=== PATIENT | male | born 1945 | race Caucasian/White ===

== ENCOUNTER 2019-01-19 01:11 | Inpatient (IN) ==
[2019-01-20] MEDS ORDERED: Bisacodyl 10 MG Supp RECTAL PRN (04:01)
[2019-01-20] MEDS ORDERED: Acetaminophen 325 MG Tablet PO PRN (04:01)
[2019-01-20] MEDS ORDERED: Dextrose 50% in Water 50 ML Vial IV.PUSH PRN (04:32)
--- NOTE | 2019-01-20 04:43 | P.HPIM ---
History of Present Illness Primary Care Physician: UNKNOWN Mr. Flores is a very pleasant 73-year-old male with a history of nephrolithiasis status post stent placement many years ago, coronary artery disease status post stent placement x2, and type 2 diabetes mellitus who is transferred from [facility] in [place] for treatment of obstructive uropathy. The patient has been having severe sharp stabbing pain in his left flank for 2 days that has progressively worsened. He was seen at [facility] in the emergency room where an abdomen/pelvis CT showed a 6 mm calculus in the left ureter at level of the border of L4 vertebrae causing mild hydronephrosis and hydroureter. He also has elevated bun at 41 and creatinine 2.61 with estimated GFR 23.31 and creatinine clearance 28.3 but denies any history of chronic kidney disease. At the time of my visit, he is pain-free. The patient states that his pain was relieved with IV morphine given in the emergency room. His WBC is 14.9 but his urinalysis is negative for findings associated with urinary tract infection. He denies any recent fevers, chills, cough, shortness of breath, chest pain, nausea, vomiting, or diarrhea. Leukocytosis may be reactive. Inpatient Certification Inpatient Certification: I certify that the inpatient services were ordered in accordance with Medicare regulations governing the order. This includes certification that hospital inpatient services are reasonable and necessary and in the case of services not specified as inpatient-only under 42 CFR 419.22(n), that they are appropriately provided as inpatient services in accordance to with the 2-midnight benchmark under 43 CFR 412.3(e) Estimated Total Length of Stay (Days): 2 Plans for Post Hospital Care: Not yet determined Review of Systems Review of Systems: all other systems reviewed are negative [facility] History History Provided By: Patient Medical History Medical History Coronary artery disease (Acute) Nephrolithiasis (Acute) Type 2 diabetes mellitus (Acute) Surgical History Surgical History History of coronary artery stent placement (Acute) History of ureter stent (Acute) Family History Family History Mother Coronary artery disease Diabetes mellitus Father Diabetes mellitus Coronary artery disease Social History Social History Substance History: No History of Abuse Smoking Status: Former smoker Tobacco Type: Cigarettes Smoking End Date: 30 years ago How Often Do You Have a Drink Containing Alcohol: Never Medications and Allergies Allergies Allergy/AdvReac Type Severity Reaction Status Date / Time No Known Allergies Allergy Verified 01/20/19 04:01 Active Medications: Active Medications Acetaminophen (Tylenol) 650 mg PO Q4H PRN PRN Reason: Temp > 100.4 Al Hydroxide/Mg Hydroxide (Milk Of Magnesia Liq) 30 ml PO Q12H PRN PRN Reason: Mild Constipation Bisacodyl (Dulcolax Supp) 10 mg RECTAL DAILY PRN PRN Reason: SEVERE CONSITIPATION Dextrose (D50w Vial) 50 ml IV.PUSH UNSCH PRN PRN Reason: PER HYPOGLYCEMIA PROTOCOL Glucagon (Glucagon Inj) 1 mg OTHER PRN PRN PRN Reason: for Hypoglycemia Protocol Insulin Aspart (Novolog Insulin Correctional Sugar Inj) 0 unit SQ ACHS AND 3AM NATHAN; Protocol Lactulose (Lactulose Liq) 30 ml PO DAILY PRN PRN Reason: SEVERE CONSITIPATION Morphine Sulfate (Morphine Inj) 2 mg IV.PUSH Q3H PRN PRN Reason: pain > 3 Ondansetron HCl (Zofran Inj) 4 mg IV.PUSH Q6H PRN PRN Reason: NAUSEA OR VOMITING Senna/Docusate Sodium (Nida-Colace) 1 tab PO BID NATHAN Sennosides (Senokot) 17.2 mg PO Q12H PRN PRN Reason: Moderate Constipation Sodium Chloride (Ns Flush) 2 ml IV.FLUSH BID NATHAN Sodium Chloride (Ns Flush) 2 ml IV.FLUSH PRN PRN PRN Reason: FLUSH AFTER USING IV ACCESS Physical Exam Vital signs: Intake & Output 01/19/19 01/19/19 01/20/19 06:59 18:59 06:59 Weight 93.44 kg Other: Weight On Admission 93.44 kg Results Labs CBC & Chem 7: 01/20/19 09:18 01/20/19 09:18 Caprini VTE Risk Assessment Caprini VTE Risk Assessment: Moderate/High Risk (score >= 2) Caprini Risk Assessment Model: Point Value = 1 Point Value = 2 Point Value = 3 Point Value = 5 Age 41-60 Minor surgery BMI > 25 kg/m2 Swollen legs Varicose veins or History of unexplained or recurrent spontaneous Oral contraceptives or hormone replacement Sepsis (< 1 month) Serious lung disease, including pneumonia (< 1 month) Abnormal pulmonary function Acute myocardial infarction Congestive heart failure (< 1 month) History of inflammatory bowel disease Medical patient at bed rest Age 61-74 Arthroscopic surgery Major open surgery (> 45 min) Laparoscopic surgery (> 45 min) Malignancy Confined to bed (> 72 hours) Immobilizing plaster cast Central venous access Age >= 75 History of VTE Family history of VTE Factor V Leiden Prothrombin [id number] Lupus anticoagulant Anticardiolipin antibodies Elevated serum homocysteine Heparin-induced thrombocytopenia Other congenital or acquired thrombophilia Stroke (< 1 month) Elective arthroplasty Hip, pelvis, or leg fracture Acute spinal cord injury (< 1 month) Prophylaxis Regimen: Total Risk Factor Score Risk Level Prophylaxis Regimen 0-1 Low Early ambulation 2 Moderate Order ONE of the following: *Sequential Compression Device (SCD) *Heparin 5000 units SQ BID 3-4 Higher Order ONE of the following medications: *Heparin 5000 units SQ TID *Enoxaparin/Lovenox 40 mg SQ daily (WT < 150 kg, CrCl > 30 mL/min) *Enoxaparin/Lovenox 30 mg SQ daily (WT < 150 kg, CrCl > 10-29 mL/min) *Enoxaparin/Lovenox 30 mg SQ BID (WT < 150 kg, CrCl > 30 mL/min) AND/OR *Sequential Compression Device (SCD) 5 or more Highest Order ONE of the following medications: *Heparin 5000 units SQ TID (Preferred with Epidurals) *Enoxaparin/Lovenox 40 mg SQ daily (WT < 150 kg, CrCl > 30 mL/min) *Enoxaparin/Lovenox 30 mg SQ daily (WT < 150 kg, CrCl > 10-29 mL/min) *Enoxaparin/Lovenox 30 mg SQ BID (WT < 150 kg, CrCl > 30 mL/min) AND *Sequential Compression Device (SCD) Assessment and Plan Plan Mr. Flores is a very pleasant 73-year-old male with a history of nephrolithiasis status post stent placement many years ago, coronary artery disease status post stent placement x2, and type 2 diabetes mellitus who is transferred from [facility] in [place] for treatment of obstructive uropathy. Obstructive uropathy -Consult to urology -Dr. Dawn agreed to see patient for probable stent placement this morning -N.p.o. except medications -IV fluid hydration with normal saline at 84 cc/h -Analgesia with morphine IV as needed -Monitor I and Os Acute kidney injury suspected - likely secondary to obstructive uropathy with probable chronic kidney disease given patient's medical history of diabetes mellitus and coronary artery disease -BUN 41, creatinine 2.61, estimated GFR 23.31, creatinine clearance 28.3 -no prior labs for comparison -patient denies history of chronic kidney disease -IV fluid hydration as above -Avoid nephrotoxins -Repeat BMP and monitor renal function Leukocytosis -WBC 14.9 -UA negative for findings associated with UTI -suspect reactive leukocytosis -We will recheck CBC this a.m. and follow results; monitor for fever or other signs of infection Type 2 Diabetes Mellitus -Accu-Cheks before meals and at bedtime with low-dose NovoLog sliding scale coverage -Hypoglycemia protocol -Monitor trends and blood glucose readings and adjust treatments as indicated -Restart home medications when patient's brings in medication list - avoid metformin due to renal dysfunction Coronary artery disease status post stent placement -We will continue cardiac medications as soon as patient's arrives with medication list -Continuous cardiac telemetry to monitor for arrhythmias DVT prophylaxis -SCDs -chemoprophylaxis per urology recommendations Attending Attestation The exam, history, and the medical decision-making described in the above note were completed with the assistance of the mid-level provider. I reviewed and agree with the findings presented. I attest that I had a [id number] encounter with the patient on the same day, and personally performed and documented my assessment and findings in the medical record. Patient with Obstructive uropathy. Consult to urology -Dr. Dawn plan for stent placement by Dr Dawn
[2019-01-20] MEDS: Sod Chloride 0.9% Inj 1,000 ML IV.CONT SCH ×2 (06:31→22:48)
[2019-01-20] MEDS: Senna/Docusate Sodium 8.6/50 MG Tablet PO SCH ×2 (08:05→22:40)
[2019-01-20] MEDS: Morphine Sulfate Inj 2 MG/ML Vial IV.PUSH PRN ×3 (08:05→15:05)
[2019-01-20 09:50] LABS: Baso % (Auto) 0.1 % (0.0-2.0); Eos # (Auto) 0.1 th/mm3 (0.0-0.4); Eos % (Auto) 0.5 % (0.0-4.0); Hematocrit 39.8 % (39.0-51.0); Hemoglobin 13.6 gm/dL (13.0-17.0); Lymph # (Auto) 1.1 th/mm3 (1.0-4.8); Lymph % (Auto) 10.2 % (9.0-44.0); Mean Corpuscular HGB Conc 34.1 % (32.0-36.0); Mean Corpuscular Hemoglobin 31.4 pg (27.0-34.0); Mean Corpuscular Volume 92.1 fL (80.0-100.0); Mean Platelet Volume 7.1 fL (7.0-11.0); Mono # (Auto) 1.1 th/mm3 (0.0-0.9); Mono % (Auto) 10.4 % (0.0-8.0); Neut # (Auto) 8.6 th/mm3 (1.8-7.7); Neut % (Auto) 78.8 % (16.0-70.0); Platelet Count 183 th/mm3 (150-450); Red Blood Count 4.32 mil/mm3 (4.50-5.90); Red Cell Distribution Width 12.6 % (11.6-17.2); White Blood Count 10.9 th/mm3 (4.0-11.0)
[2019-01-20 10:11] LABS: Calcium 8.5 mg/dL (8.5-10.1); Carbon Dioxide 21.5 meq/L (21.0-32.0); Potassium 4.4 meq/L (3.5-5.1)
--- NOTE | 2019-01-20 10:58 | P.CONURO ---
History of Present Illness Service: Med Consult date: 01/20/19 Requesting Physician: Yesenia Maloney Reason for Consult: obstructing ureteral stone, renal colic, hydronephrosis, CKD Primary Care Provider: UNKNOWN Chief Complaint: Pain, left side History of Present Illness: 73 Y/O white male with 3 day hx of left flank and LLQ abdominal pain. He was seen in the [facility] ED last night where a CT scan showed a 6 mm stone obstructing the proximal LEFT ureter with some hydronephrosis. He was transferred to [place] early this AM. He has a hx of urinary stones in the past. Other medical problems: DM, CAD with stents, CKD with stent in left renal artery , Parkinson's. He agrees to have a urinary stent placed into the LEFT ureter and kidney in the OR today under general anesthesia. He fully understands the reason and the procedure. F/U with his Urologist in [place] after discharge. [facility] - History History Provided By: Patient - Medical History Medical History: Medical History (Last Updated 01/20/19 @ 04:56 by ALLEN León) Coronary artery disease Nephrolithiasis Type 2 diabetes mellitus - Surgical History Surgical History: Surgical History (Last Updated 01/20/19 @ 04:57 by ALLEN León) History of coronary artery stent placement History of ureter stent - Family History Family History: Family History Mother Coronary artery disease Diabetes mellitus Father Diabetes mellitus Coronary artery disease - Social History I have reviewed the patient's Social History: Yes - Tobacco History Smoking Status: Former smoker Tobacco Type: Cigarettes Smoking End Date: 30 years ago - Alcohol History How Often Do You Have a Drink Containing Alcohol: Never - Substance Use History Substance History: No History of Abuse Medications and Allergies Active Medications: Active Medications Acetaminophen (Tylenol) 650 mg PO Q4H PRN PRN Reason: Temp > 100.4 Al Hydroxide/Mg Hydroxide (Milk Of Magnesia Liq) 30 ml PO Q12H PRN PRN Reason: Mild Constipation Bisacodyl (Dulcolax Supp) 10 mg RECTAL DAILY PRN PRN Reason: SEVERE CONSITIPATION Dextrose (D50w Vial) 50 ml IV.PUSH UNSCH PRN PRN Reason: PER HYPOGLYCEMIA PROTOCOL Glucagon (Glucagon Inj) 1 mg OTHER PRN PRN PRN Reason: for Hypoglycemia Protocol Sodium Chloride (Ns Inj) 1,000 mls @ 84 mls/hr IV.CONT .[id number] NATHAN Last Admin: 01/20/19 06:31 Dose: 84 mls/hr Insulin Aspart (Novolog Insulin Correctional Sugar Inj) 0 unit SQ ACHS AND 3AM NATHAN; Protocol Lactulose (Lactulose Liq) 30 ml PO DAILY PRN PRN Reason: SEVERE CONSITIPATION Morphine Sulfate (Morphine Inj) 2 mg IV.PUSH Q3H PRN PRN Reason: pain > 3 Last Admin: 01/20/19 08:05 Dose: 2 mg Ondansetron HCl (Zofran Inj) 4 mg IV.PUSH Q6H PRN PRN Reason: NAUSEA OR VOMITING Senna/Docusate Sodium (Nida-Colace) 1 tab PO BID [facility] Last Admin: 01/20/19 08:05 Dose: 1 tab Sennosides (Senokot) 17.2 mg PO Q12H PRN PRN Reason: Moderate Constipation Sodium Chloride (Ns Flush) 2 ml IV.FLUSH BID NATHAN Sodium Chloride (Ns Flush) 2 ml IV.FLUSH PRN PRN PRN Reason: FLUSH AFTER USING IV ACCESS Allergies Allergy/AdvReac Type Severity Reaction Status Date / Time No Known Allergies Allergy Verified 01/20/19 04:01 Physical Exam Vital Signs - 24 hr 01/20/19 06:46 01/20/19 08:00 Temperature 97.9 F Pulse Rate 53 L 54 L Respiratory Rate 18 16 Blood Pressure 118/67 112/68 Pulse Oximetry 98 97 Physical Exam: GENERAL: This is a well-nourished, well-developed patient, in no apparent distress. SKIN: No rashes, ecchymoses or lesions. Cool and dry. HEAD: Atraumatic. Normocephalic. No temporal or scalp tenderness. EYES: Pupils equal round and reactive. Extraocular motions intact. No scleral icterus. No injection or drainage. ENT: Nose without bleeding, purulent drainage or septal hematoma. Throat without erythema, tonsillar hypertrophy or exudate. Uvula midline. Airway patent. NECK: Trachea midline. No JVD or lymphadenopathy. Supple, nontender, no meningeal signs. CARDIOVASCULAR: RESPIRATORY: GASTROINTESTINAL: Abdomen soft, non-tender, nondistended. No hepato-splenomegaly , or palpable masses. No guarding. GENITOURINARY: FLANKS: Left tenderness to fist percussion. EXT. GENITALIA: Penis WNL, Testes WNL. PROSTATE: Will examine in the OR. MUSCULOSKELETAL: Extremities without clubbing, cyanosis, or edema. No joint tenderness, effusion, or edema noted. NEUROLOGICAL: Awake and alert. Cranial nerves II through XII intact. Motor and sensory grossly within normal limits. Normal speech. Lab results reviewed: Yes Laboratory Results - last 24 hr 01/20/19 01/20/19 01/20/19 07:59 09:18 09:18 WBC 10.9 RBC 4.32 L Hgb 13.6 Hct 39.8 MCV 92.1 MCH 31.4 MCHC 34.1 RDW 12.6 Plt Count 183 MPV 7.1 Neut % (Auto) 78.8 H Lymph % (Auto) 10.2 [place] % (Auto) 10.4 H Eos % (Auto) 0.5 Baso % (Auto) 0.1 Neut # (Auto) 8.6 H Lymph # (Auto) 1.1 [place] # (Auto) 1.1 H Eos # (Auto) 0.1 Baso # (Auto) 0.0 WBC Differential . Differential Comment Auto diff final Sodium 138 Potassium 4.4 Chloride 107 Carbon Dioxide 21.5 Anion Gap 10 BUN 43 H Creatinine 2.49 H Estimated GFR 26 L POC Glucose 108 Random Glucose 93 Calcium 8.5 Result Diagrams: 01/20/19 09:18 01/20/19 09:18 Personally reviewed images: No Imaging: CT scan done at [place], [place]. Assessment and Plan - Assessment (1) Calculus of proximal left ureter Code(s): N20.1 - Calculus of ureter Status: Acute Onset Date: ~01/17/19 (2) Renal colic on left side Code(s): N23 - Unspecified renal colic Status: Acute Onset Date: ~01/17/19 (3) Hydronephrosis of left kidney Code(s): N13.30 - Unspecified hydronephrosis Status: Acute Onset Date: ~ (4) CKD (chronic kidney disease) stage 4, GFR 15-29 ml/min Code(s): N18.4 - Chronic kidney disease, stage 4 (severe) Status: Chronic - Plan To OR today to place urinary stent into the LEFT ureter and kidney. Discharge tomorrow if medically stable. F/U with his Urologist in [place]. Discussed Condition With: Patient, , nurse, Dr. Maloney [facility] ED physician. Discharge Planning: discharge tomorrow if medically stable. F/U with his Urologist in [place].
--- NOTE | 2019-01-20 13:25 | ECG ---
Date Performed: 01/20/2019 Time Performed: 11:15:09 PTAGE: 73 years EKG: SINUS BRADYCARDIA BORDERLINE ECG NO PREVIOUS TRACING DOCTOR: Chidi Reich Interpretating Date/Time 01/20/2019 13:23:24
[2019-01-20 14:29] LABS: Prothrombin Time 10.5 sec (9.8-11.6)
[2019-01-20] MEDS: Insulin NovoLOG Aspart Correctional Sugar Inj SQ SCH ×3 (14:45→20:55)
[2019-01-20] MEDS ORDERED: Lidocaine PF 1% Inj 5 ML Syringe OTHER ONE (19:26)
[2019-01-20] MEDS ORDERED: fentaNYL Citrate Inj 100 MCG/2 ML Ampul ONE (20:42)
--- NOTE | 2019-01-20 20:58 | P.OP ---
- Preoperative Diagnosis (1) Renal colic on left side (2) Calculus of proximal left ureter (3) Hydronephrosis of left kidney (4) CKD (chronic kidney disease) stage 4, GFR 15-29 ml/min - Postoperative Diagnosis (1) Renal colic on left side (2) Calculus of proximal left ureter (3) Hydronephrosis of left kidney (4) CKD (chronic kidney disease) stage 4, GFR 15-29 ml/min Date of procedure: 01/20/19 Procedure: Cystoscopy. Left retrograde ureterogram. Placement of 6 Fr. 26 CM urinary stent into LEFT ureter and kidney. Anesthesia: other (Gen LMA) Surgeon: Samm Keating MD Estimated blood loss (mL): 2 Pathology: none sent Operation and Findings: The patient was taken into the urology suite, placed supine on the cystoscopy table, given a general anesthetic with LMA airway. Sequential compression devices were in place and connected to the pump. 1 g of IV Ancef was given. The patient was then positioned on the operating table for the urological procedure with his legs in stirrups. A Betadine prep was then done to include the external genitalia, perineum, medial thighs, and suprapubic area up to the umbilicus. He was then draped sterilely. 2 timeouts were done. First patient identification, correct left side, correct procedure, correct surgeon, medication and allergies etc. Then a fire safety timeout was done. A 20 Latvian cystoscope using a 30 degree lens was then passed in a retrograde fashion up the urethra through the prostate into the bladder openings. Without difficulty. The bladder interior was then visualized completely with a 70 degree lens. Cystoscopic findings include a large caliber bulbar urethral stricture that is nonobstructing, prostatic calcifications compatible with chronic prostatitis, nonobstructing prostate lateral lobes, and anterior angulated prostate floor up to the bladder neck which is vascular. The bladder interior shows a moderate degree of bladder trabeculation with a small diverticulum slightly above the left ureteral orifice and trigone. There is some increased vascularity near the bladder neck and trigone. No bladder cancers or lesions were seen inside the bladder. The trigone appeared to be unremarkable and both ureteral orifices were visible and both appeared to be slightly spatulated with the bladder distended. Otherwise the had slit openings. Fluoroscopy showed the stone in the proximal left ureter opposite L4. A 5 Latvian open-ended ureteral catheter was passed just inside the left ureteral orifice. Through the catheter Conray was injected until it reached the stone. No attempt was made to force Conray above the stone. Through the open-ended catheter a Sensor guidewire was passed beyond the stone and was seen to coil in the kidney on fluoroscopy. The open-ended catheter was then removed over the guidewire. Then over the guidewire a 6 Latvian, 26 cm length Microvasive urinary stent was passed into the kidney and seen to coil fluoroscopically. The lower end was positioned at the ureteral orifice at the correct black guerrero at the distal end of the stent. The pullout string was then removed. The guidewire was then removed. The lower end of the stent was then positioned to coil inside the bladder. Fluoroscopy was used to show that both proximal and distal coils were coiled correctly and in the proper location. The bladder was drained of irrigating fluid. The cystoscope was removed from the patient. The foreskin was then replaced over the glans penis. A rectal prostate exam was then done. No rectal masses were felt. The prostate appeared to be moderately enlarged smooth symmetrical and feels benign without any palpable nodules. The patient tolerated the procedure well without any surgical or anesthetic complications and he was found to be stable in the recovery room. Plan: Patient will be kept in the hospital overnight. He will be discharged tomorrow by the hospitalist if he is medically stable. Urology follow-up will be with his urologist in [place].
[2019-01-21] MEDS: Insulin NovoLOG Aspart Correctional Sugar Inj SQ SCH ×4 (08:00→21:15)
--- NOTE | 2019-01-21 09:44 | P.PNIM ---
Subjective Interval history: The patient is in bed appears tired however not in acute distress. Says he has dark urine and bloody. Some pain with urination. No fever or chills overnight. No nausea or vomiting able to eat. Physical Exam Vital signs: Vital Signs 01/20/19 11:27 01/20/19 15:45 01/20/19 20:00 Temperature 98 F Pulse Rate 51 L 54 L 55 L Respiratory Rate 16 18 Blood Pressure 111/62 114/62 Pulse Oximetry 95 95 01/20/19 20:35 01/20/19 20:45 01/20/19 21:00 Temperature 97.6 F 97.6 F Pulse Rate 59 L 61 59 L Respiratory Rate 12 15 12 Blood Pressure 140/67 146/65 H 126/74 Pulse Oximetry 91 L 96 93 L 01/21/19 00:00 01/21/19 04:00 Temperature 98.3 F Pulse Rate 53 L 58 L Respiratory Rate 16 16 Blood Pressure 118/68 130/71 Pulse Oximetry 97 98 Intake & Output 01/20/19 01/21/19 01/21/19 18:59 06:59 18:59 Intake Total 1000 / 1000 412 / 412 Output Total 400 / 400 902 / 902 Balance 600 / 600 -490 / -490 Intake: IV 1000 / 1000 NS Inj 1,000 ML @ 84 mls/hr IV. 1000 / 1000 CONT .[id number] [facility] Rx#:[id number] Oral 400 / 400 Anesthesia Amount 12 / Output: Urine 400 / 400 900 / 900 Estimated Blood Loss 2 / 2 Narrative: GENERAL: Pleasant 73-year-old male, well-nourished well-developed appears in not acute distress. CARDIOVASCULAR: Regular rate and rhythm. RESPIRATORY: No accessory muscle use. Clear to auscultation. Breath sounds equal bilaterally. GASTROINTESTINAL: Abdomen soft, non-tender, nondistended. Hepatic and splenic margins not palpable. MUSCULOSKELETAL: Extremities without clubbing, cyanosis, or edema. No obvious deformities. NEUROLOGICAL: Awake and alert. No obvious cranial nerve deficits. Motor grossly within normal limits. Normal speech. PSYCHIATRIC: Appropriate mood and affect; insight and judgment normal. Results Labs CBC & Chem 7: 01/20/19 09:18 01/21/19 10:42 Assessment and Plan (1) Calculus of proximal left ureter: Code(s): N20.1 - Calculus of ureter Status: Acute Onset Date: ~01/17/19 (2) Renal colic on left side: Code(s): N23 - Unspecified renal colic Status: Acute Onset Date: ~01/17/19 (3) Hydronephrosis of left kidney: Code(s): N13.30 - Unspecified hydronephrosis Status: Acute Onset Date: ~01/17/19 (4) CKD (chronic kidney disease) stage 4, GFR 15-29 ml/min: Code(s): N18.4 - Chronic kidney disease, stage 4 (severe) Status: Chronic Onset Date: Unknown Plan Mr. Flores is a very pleasant 73-year-old male with a history of nephrolithiasis status post stent placement many years ago, coronary artery disease status post stent placement x2, and type 2 diabetes mellitus who is transferred from [facility] in [place] for treatment of obstructive uropathy. Obstructive uropathy -Consult to urology -Dr. Dawn s/p stent placement on 01/20 -IV fluid hydration with normal saline at 84 cc/h -Analgesia with morphine IV as needed -Monitor I and Os Acute kidney injury suspected - likely secondary to obstructive uropathy with probable chronic kidney disease given patient's medical history of diabetes mellitus and coronary artery disease -BUN 41, creatinine 2.61, estimated GFR 23.31, creatinine clearance 28.3 -on admissionno prior labs for comparison -patient denies history of chronic kidney disease -IV fluid hydration as above, kidney function imprpving. -Avoid nephrotoxins -Repeat BMP and monitor renal function Leukocytosis -WBC 14.9 -UA negative for findings associated with UTI -suspect reactive leukocytosis -We will recheck CBC this a.m. and follow results; monitor for fever or other signs of infection Type 2 Diabetes Mellitus -Accu-Cheks before meals and at bedtime with low-dose NovoLog sliding scale coverage -Hypoglycemia protocol -Monitor trends and blood glucose readings and adjust treatments as indicated -Restart home medications when patient's brings in medication list - avoid metformin due to renal dysfunction Coronary artery disease status post stent placement -We will continue cardiac medications as soon as patient's arrives with medication list -Continuous cardiac telemetry to monitor for arrhythmias DVT prophylaxis -SCDs -chemoprophylaxis per urology recommendations Discharge plan: Discharge likely tomorrow if creatinine continues to improve
[2019-01-21] MEDS: Senna/Docusate Sodium 8.6/50 MG Tablet PO SCH ×2 (09:54→21:08)
[2019-01-21 11:57] LABS: Calcium 8.5 mg/dL (8.5-10.1); Carbon Dioxide 23.9 meq/L (21.0-32.0); Potassium 4.3 meq/L (3.5-5.1)
--- NOTE | 2019-01-21 15:09 | P.DS ---
DS: Providers Date of admission: 01/20/19 03:47 Primary care physician: UNKNOWN Consults: 01/20/19 04:43 Consult to Urology Routine Consulting Provider: Samm Keating Reason for Consultation: obstructive uropathy Notified:: Service Spoke with:: leonardo Date Notified:: 01/20/19 Time Notified:: 06:02 Ordering Provider: DORINA DS: Diagnosis Discharge Diagnosis (1) Calculus of proximal left ureter: Status: Acute (2) Renal colic on left side: Status: Acute (3) Hydronephrosis of left kidney: Status: Acute (4) CKD (chronic kidney disease) stage 4, GFR 15-29 ml/min: Status: Chronic DS: Summary Mr. Flores is a very pleasant 73-year-old male with a history of nephrolithiasis status post stent placement many years ago, coronary artery disease status post stent placement x2, and type 2 diabetes mellitus who is transferred from [facility] in [place] for treatment of obstructive uropathy. Obstructive uropathy -Consult to urology -Dr. Dawn s/p stent placement on 01/20 -IV fluid hydration with normal saline at 84 cc/h -Analgesia with morphine IV as needed -Monitor I and Os Acute kidney injury suspected - likely secondary to obstructive uropathy with probable chronic kidney disease given patient's medical history of diabetes mellitus and coronary artery disease -BUN 41, creatinine 2.61, estimated GFR 23.31, creatinine clearance 28.3 -on admission no prior labs for comparison -patient denies history of chronic kidney disease -IV fluid hydration as above, kidney function improving. CR at 1.33 at DC imprpved significantly. Encourage PO intake -Avoid nephrotoxins -Repeat BMP and monitor renal function Leukocytosis -WBC 14.9 -UA negative for findings associated with UTI -suspect reactive leukocytosis No signes of infection repeat wbc back to normal Type 2 Diabetes Mellitus -Accu-Cheks before meals and at bedtime with low-dose NovoLog sliding scale coverage -Hypoglycemia protocol -Monitor trends and blood glucose readings and adjust treatments as indicated -Restart home medications when patient's brings in medication list - avoid metformin due to renal dysfunction Coronary artery disease status post stent placement -We will continue cardiac medications as soon as patient's arrives with medication list -Continuous cardiac telemetry to monitor for arrhythmias DVT prophylaxis -SCDs -chemoprophylaxis per urology recommendations The patient improved significantly, DC home with home health. To follow up as OP with PCP and consultants. Time Spent with Patient Total time spent providing and/or coordinating discharge services: > 30 min Exam Narrative Exam Narrative: GENERAL: Pleasant 73-year-old male, well-nourished well- developed appears in not acute distress. CARDIOVASCULAR: Regular rate and rhythm. RESPIRATORY: No accessory muscle use. Clear to auscultation. Breath sounds equal bilaterally. GASTROINTESTINAL: Abdomen soft, non-tender, nondistended. Hepatic and splenic margins not palpable. MUSCULOSKELETAL: Extremities without clubbing, cyanosis, or edema. No obvious deformities. NEUROLOGICAL: Awake and alert. No obvious cranial nerve deficits. Motor grossly within normal limits. Normal speech. PSYCHIATRIC: Appropriate mood and affect; insight and judgment normal. Results Labs on day of discharge: Labs from last 24 hours 01/21/19 01/21/19 01/21/19 11:45 10:42 08:02 Sodium 139 Potassium 4.3 Chloride 108 H Carbon Dioxide 23.9 Anion Gap 7 BUN 36 H Creatinine 1.87 H Estimated GFR 36 L POC Glucose 135 H 117 H Random Glucose 134 H Calcium 8.5 01/21/19 01/20/19 01/20/19 04:21 20:54 17:14 Sodium Potassium Chloride Carbon Dioxide Anion Gap BUN Creatinine Estimated GFR POC Glucose 99 85 94 Random Glucose Calcium Discharge Plan Discharge Disposition Patient Disposition: 01 Discharge Home Discharge Order Discharge Orders: Discharge Order (Routine); Ordered 01/22/19 Ordered By: Rochelle Sadler Urology Clear for Discharge (Routine); Ordered 01/20/19 Ordered By: Samm Keating Discharge Details Anticipated Discharge Date: 01/22/19 Discharge Comment: DC if kidney function improves Physicians Team Primary Care Provider: ROSALIA, Attending Provider: Rochelle Sadler Other Providers: Samm Keating Rxs /Orders / Referrals /Forms Prescriptions: New hydrocodone-acetaminophen [Lyle] 5-325 mg tablet 1 tab PO Q4-6H PRN (Reason: Acute Pain Exception) Qty: 10 RF: 0 Referrals: UNKNOWN, [Primary Care Provider] - See Instructions ( Please call the physician's office to book the appointment to be seen within [follow up with your PCP in 2-3 days ]. Follow up with your urology Dr in [place] within 1 week) Discharge Instructions Patient Printed Instructions: Hydrocodone/Acetaminophen (By mouth), Kidney Stones (DC), Cystoscopy (DC) Additional Instructions: Your Health Problems: Goals to Promote Your Health: * To prevent worsening of your condition * To maintain your health at the optimal level Directions to Meet Your Goals: * Take your medications as prescribed * Follow your dietary instruction * Follow activity as directed * Keep your appointments as scheduled * Take your immunizations and boosters as scheduled * If your symptoms worsen call your PCP * If no PCP go to Urgent Care or Emergency Room Smoking is dangerous to your health. Avoid second hand smoke. You may reach the 24-hour crisis hotline for domestic abuse at . Post Discharge Care Plan Care Plan Goals: Your Health Problems: Goals to Promote Your Health: * To prevent worsening of your condition * To maintain your health at the optimal level Directions to Meet Your Goals: * Take your medications as prescribed * Follow your dietary instruction * Follow activity as directed * Keep your appointments as scheduled * Take your immunizations and boosters as scheduled * If your symptoms worsen call your PCP * If no PCP go to Urgent Care or Emergency Room Smoking is dangerous to your health. Avoid second hand smoke. You may reach the [place]-hour Tech[employer]line for domestic abuse at .
[2019-01-21] MEDS: Sod Chloride 0.9% Inj 1,000 ML IV.CONT SCH ×2 (21:13→21:15)
[2019-01-22] MEDS: Insulin NovoLOG Aspart Correctional Sugar Inj SQ SCH ×3 (03:12→11:44)
[2019-01-22] MEDS: Senna/Docusate Sodium 8.6/50 MG Tablet PO SCH (08:24)
[2019-01-22 09:30] LABS: Calcium 8.8 mg/dL (8.5-10.1); Carbon Dioxide 24.8 meq/L (21.0-32.0); Potassium 4.9 meq/L (3.5-5.1)
[2019-01-22] MEDS: Sod Chloride 0.9% Inj 1,000 ML IV.CONT SCH (14:28)
== END 2019-01-22 17:06 | disposition home or self-care (01) | DRG 661 ==
LOC: HCIN 01-20 03:47
PROVIDERS: ADMIT Hospitalist; ATTEND Hospitalist
DX: N18.4 Chronic kidney disease, stage 4 (severe); E11.22 Type 2 diabetes mellitus with diabetic chronic kidney disease; N32.89 Other specified disorders of bladder; N41.1 Chronic prostatitis; N17.9 Acute kidney failure, unspecified; Z95.5 Presence of coronary angioplasty implant and graft; N13.2 Hydronephrosis with renal and ureteral calculous obstruction; G20 Parkinson's disease; I25.10 Atherosclerotic heart disease of native coronary artery without angina pectoris; Z82.49 Family history of ischemic heart disease and other diseases of the circulatory system; Z87.442 Personal history of urinary calculi; N35.919 Unspecified urethral stricture, male, unspecified site; Z87.891 Personal history of nicotine dependence; N13.9 Obstructive and reflux uropathy, unspecified; Z83.3 Family history of diabetes mellitus; D72.829 Elevated white blood cell count, unspecified
CPT/HCPCS: 74420; 80048; 82948; 82962; 85025; 85610; 93005; C1769; J0690; J2270; J2405; J2704; J3010; J7030; J7120